=== PATIENT | female | born 1950 | race Caucasian/White ===

== ENCOUNTER → 2018-02-02 19:57 | Emergency (ER) | payer OTHER ==
[~2018-02-02 19:57] MED LIST: Ibuprofen TAB* 400 MG PO ONE
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
[2018-02-02 22:10] VITALS: BP 120/74
== END | disposition home or self-care (01) ==
LOC: ED 19:57
DX: S60.221A Contusion of right hand, initial encounter (principal); V89.2XXA Person injured in unspecified motor-vehicle accident, traffic, initial encounter; Y92.9 Unspecified place or not applicable
CPT/HCPCS: 99282; A9270-GY